=== PATIENT | male | born 1990 | race Two or more races ===

== ENCOUNTER 2018-12-28 12:55 | Day surgery (SDC) | payer OTHER ==
[2018-12-28] MEDS ORDERED: Sodium Chloride 0.9% 10 ML Syringe FLUSH PRN (13:31)
[2018-12-28] MEDS ORDERED: Ondansetron 4 MG/2 ML SDV IVPUSH ONE (13:31)
[2018-12-28] MEDS ORDERED: HYDROmorphone 0.5 MG/0.5 ML Syringe IVPUSH ONE (13:31)
--- NOTE | 2018-12-28 13:40 | EDM.PDOC ---
<Tamia Arnold - Last Filed: 12/28/18 14:15> ED HPI GENERAL MEDICAL PROBLEM - General Chief Complaint: Abdominal Pain Stated Complaint: ABDOMINAL PAIN Time Seen by Provider: 12/28/18 13:13 - Related Data Allergies Allergy/AdvReac Type Severity Reaction Status Date / Time No Known Allergies Allergy Verified 12/28/18 13:11 Home Meds: Home Meds . [No Known Home Meds] 12/28/18 [History] Course - Vital Signs Last Recorded V/S: Last Vital Signs Temp 98.5 F 12/28/18 17:48 Pulse 95 12/28/18 17:48 Resp 18 12/28/18 17:48 BP 124/85 12/28/18 17:48 Pulse Ox 95 12/28/18 17:48 - Orders/Labs/Meds Orders: Active Orders 24 hr Category Date Time Status Influenza Vaccine Charge [RC] .DISCHARGE Care 12/28/18 13:31 Active Peripheral IV Care [RC] . DIRECTED Care 12/28/18 13:32 Active Piperacillin/Tazobactam [Piperacil-Tazobact] 4.5 gm Med 12/28/18 16:45 Active Sodium Chloride 0.9% [Normal Saline] 100 ml IV Q8H Sodium Chloride 0.9% [Normal Saline] 1,000 ml Med 12/28/18 17:45 Active IV ASDIRECTED Sodium Chloride 0.9% [Normal Saline] 1,000 ml Med 12/28/18 13:45 Active IV ONETIME Sodium Chloride 0.9% [Saline Flush] Med 12/28/18 13:31 Active 10 ml FLUSH ASDIRECTED PRN Peripheral IV Insertion Adult [OM.PC] Stat Oth 12/28/18 13:31 Ordered Medication Orders Sodium Chloride (Normal Saline) 1,000 mls @ 999 mls/hr IV ONETIME [facility] Last Admin: 12/28/18 13:58 Dose: 999 mls/hr Piperacillin Sod/Tazobactam (Sod 4.5 gm/ Sodium Chloride) 100 mls @ 25 mls/hr IV Q8H [facility] Last Admin: 12/28/18 17:38 Dose: 25 mls/hr Sodium Chloride (Normal Saline) 1,000 mls @ 100 mls/hr IV ASDIRECTED [facility] Last Admin: 12/28/18 17:40 Dose: 100 mls/hr Sodium Chloride (Saline Flush) 10 ml FLUSH ASDIRECTED PRN PRN Reason: Keep Vein Open Last Admin: 12/28/18 13:50 Dose: 10 ml Labs: Laboratory Tests 12/28/18 12/28/18 12/28/18 Range/Units 13:50 13:50 13:50 WBC 12.33 H (4.23-9.07) K/mm3 RBC 5.47 (4.63-6.08) M/mm3 Hgb 16.9 (13.7-17.5) gm/dl Hct 46.6 (40.1-51.0) % MCV 85.2 (79.0-92.2) fl MCH 30.9 (25.7-32.2) pg MCHC 36.3 H (32.2-35.5) g/dl RDW Std Deviation 38.8 (35.1-43.9) fL Plt Count 121 L (163-337) K/mm3 MPV 12.1 (9.4-12.3) fl Neutrophils % (Manual) 83 H (40-60) % Band Neutrophils % 0 (0-10) % Lymphocytes % (Manual) 9 L (20-40) % Atypical Lymphs % 0 % Monocytes % (Manual) 8 (2-10) % Eosinophils % (Manual) 0 L (0.8-7.0) % Basophils % (Manual) 0 L (0.2-1.2) Platelet Estimate Adequate RBC Morph Comment Normal Sodium 134 L (136-145) mEq/L Potassium 3.3 L (3.5-5.1) mEq/L Chloride 95 L (98-107) mEq/L Carbon Dioxide 27 (21-32) mEq/L Anion Gap 15.3 H (5-15) BUN 18 (7-18) mg/dL Creatinine 1.1 (0.7-1.3) mg/dL Est Cr Clr Drug Dosing TNP Estimated GFR (MDRD) > 60 (>60) mL/min BUN/Creatinine Ratio 16.4 (14-18) Glucose 125 H (74-106) mg/dL Calcium 9.4 (8.5-10.1) mg/dL Total Bilirubin 3.0 H (0.2-1.0) mg/dL AST 61 H (15-37) U/L ALT 138 H (16-63) U/L Alkaline Phosphatase 83 (46-116) U/L C-Reactive Protein 39.3 H* (<1.0) mg/dL Total Protein 8.2 (6.4-8.2) g/dl Albumin 3.4 (3.4-5.0) g/dl Globulin 4.8 gm/dL Albumin/Globulin Ratio 0.7 L (1-2) Lipase 159 (73-393) U/L Meds: Medications Generic Name Dose Route Start Last Admin Trade Name Freq PRN Reason Stop Dose Admin Sodium Chloride 1,000 mls @ 999 mls/hr 12/28/18 13:45 12/28/18 13:58 Normal Saline IV 999 mls/hr ONETIME [facility] Administration Piperacillin Sod/Tazobactam 100 mls @ 25 mls/hr 12/28/18 16:45 12/28/18 17:38 Sod 4.5 gm/ Sodium Chloride IV 25 mls/hr Q8H [facility] Administration Sodium Chloride 1,000 mls @ 100 mls/hr 12/28/18 17:45 12/28/18 17:40 Normal Saline IV 100 mls/hr ASDIRECTED [facility] Administration Sodium Chloride 10 ml 12/28/18 13:31 12/28/18 13:50 Saline Flush FLUSH 10 ml ASDIRECTED PRN Administration Keep Vein Open Discontinued Medications Generic Name Dose Route Start Last Admin Trade Name Nakulq PRN Reason Stop Dose Admin Diatrizoate Meglum/Diatrizoate Sod 90 ml 12/28/18 15:37 12/28/18 15:58 Gastrografin 37% PO 12/28/18 15:38 90 ml ONETIME ONE Administration Hydromorphone HCl 0.5 mg 12/28/18 13:31 12/28/18 13:54 Dilaudid IVPUSH 12/28/18 13:32 0.5 mg ONETIME ONE Administration Sodium Chloride Confirm 12/28/18 17:24 12/28/18 17:39 Normal Saline Administered 12/28/18 17:25 Not Given Dose 1,000 mls @ as directed .ROUTE .STK-MED ONE Influenza Virus Vaccine 60 mcg 12/28/18 13:45 Fluzone Quad 6969-1889 Syringe IM 12/28/18 13:46 .ONCE ONE Iopamidol 100 ml 12/28/18 15:37 12/28/18 15:58 Isovue-300 (61%) IVPUSH 12/28/18 15:38 100 ml ONETIME ONE Administration Ondansetron HCl 4 mg 12/28/18 13:31 12/28/18 13:52 Zofran IVPUSH 12/28/18 13:32 4 mg ONETIME ONE Administration Sodium Chloride 10 ml 12/28/18 15:37 12/28/18 15:58 Saline Flush FLUSH 12/28/18 15:38 10 ml ONETIME ONE Administration Departure - Departure Disposition: Admitted As Inpatient 65 Clinical Impression: Appendicitis - Discharge Information Referrals: PCP,Unknown [Ordering Only Provider] - Forms: ED Department Discharge - My Orders Last 24 Hours: My Active Orders 12/28/18 13:31 Influenza Vaccine Charge [RC] .DISCHARGE Sodium Chloride 0.9% [Saline Flush] 10 ml FLUSH ASDIRECTED PRN Peripheral IV Insertion Adult [OM.PC] Stat 12/28/18 13:32 Peripheral IV Care [RC] . DIRECTED 12/28/18 13:45 Sodium Chloride 0.9% [Normal Saline] 1,000 ml IV ONETIME 12/28/18 16:45 Piperacillin/Tazobactam [Piperacil-Tazobact] 4.5 gm Sodium Chloride 0.9% [ Normal Saline] 100 ml IV Q8H - Assessment/Plan Last 24 Hours: My Active Orders 12/28/18 13:31 Influenza Vaccine Charge [RC] .DISCHARGE Sodium Chloride 0.9% [Saline Flush] 10 ml FLUSH ASDIRECTED PRN Peripheral IV Insertion Adult [OM.PC] Stat 12/28/18 13:32 Peripheral IV Care [RC] . DIRECTED 12/28/18 13:45 Sodium Chloride 0.9% [Normal Saline] 1,000 ml IV ONETIME 12/28/18 16:45 Piperacillin/Tazobactam [Piperacil-Tazobact] 4.5 gm Sodium Chloride 0.9% [ Normal Saline] 100 ml IV Q8H <Fernando Crook - Last Filed: 12/28/18 18:09> ED HPI GENERAL MEDICAL PROBLEM - General Source of Information: Reports: Patient, RN Notes Reviewed - History of Present Illness INITIAL COMMENTS - FREE TEXT/NARRATIVE: 28 year old male with onset of abd pain, nausea and vomiting 2 days ago that continues today. There has been no diarrhea or obvious fever. No hx of prior abd surguries. The pain is worse with motion and walking. He has tried to eat earlier today but was unable to do that due to the severe nausea. Lower Abdomen Pain Score (Numeric/FACES): 10 Past Medical History - Infectious Disease History Infectious Disease History: Reports: Chicken Pox Social & Family History - Tobacco Use Smoking Status *Q: Current Every Day Smoker Years of Tobacco use: 18 Packs/Tins Daily: 0.5 - Caffeine Use Caffeine Use: Reports: Coffee, Soda - Alcohol Use Days Per Week of Alcohol Use: 1 Number of Drinks Per Day: 6 Total Drinks Per Week: 6 - Recreational Drug Use Recreational Drug Use: No ED ROS GENERAL - Review of Systems Review Of Systems: See Below Constitutional: Reports: Chills. Denies: Fever HEENT: Reports: No Symptoms Respiratory: Denies: Shortness of Breath, Cough Cardiovascular: Denies: Chest Pain GI/Abdominal: Reports: Abdominal Pain, Nausea, Vomiting. Denies: Diarrhea Musculoskeletal: Reports: No Symptoms Skin: Reports: No Symptoms Neurological: Reports: No Symptoms ED EXAM, GI/ABD - Physical Exam Exam: See Below General Appearance: Alert, Mild Distress Throat/Mouth: Normal Inspection, Normal Oropharynx Neck: Supple, Full Range of Motion Respiratory/Chest: No Respiratory Distress, Lungs Clear, Normal Breath Sounds Cardiovascular: Tachycardia GI/Abdominal Exam: Soft, Rebound (mild), Tender (diffuse tenderness upper and lower abd with most tenderness RLQ). No: Guarding Neurological: Alert, Oriented Skin Exam: Warm, Dry, Normal Color Course - Orders/Labs/Meds Labs: Laboratory Tests 12/28/18 12/28/18 12/28/18 Range/Units 13:50 13:50 13:50 WBC 12.33 H (4.23-9.07) K/mm3 RBC 5.47 (4.63-6.08) M/mm3 Hgb 16.9 (13.7-17.5) gm/dl Hct 46.6 (40.1-51.0) % MCV 85.2 (79.0-92.2) fl MCH 30.9 (25.7-32.2) pg MCHC 36.3 H (32.2-35.5) g/dl RDW Std Deviation 38.8 (35.1-43.9) fL Plt Count 121 L (163-337) K/mm3 MPV 12.1 (9.4-12.3) fl Neutrophils % (Manual) 83 H (40-60) % Band Neutrophils % 0 (0-10) % Lymphocytes % (Manual) 9 L (20-40) % Atypical Lymphs % 0 % Monocytes % (Manual) 8 (2-10) % Eosinophils % (Manual) 0 L (0.8-7.0) % Basophils % (Manual) 0 L (0.2-1.2) Platelet Estimate Adequate RBC Morph Comment Normal Sodium 134 L (136-145) mEq/L Potassium 3.3 L (3.5-5.1) mEq/L Chloride 95 L (98-107) mEq/L Carbon Dioxide 27 (21-32) mEq/L Anion Gap 15.3 H (5-15) BUN 18 (7-18) mg/dL Creatinine 1.1 (0.7-1.3) mg/dL Est Cr Clr Drug Dosing TNP Estimated GFR (MDRD) > 60 (>60) mL/min BUN/Creatinine Ratio 16.4 (14-18) Glucose 125 H (74-106) mg/dL Calcium 9.4 (8.5-10.1) mg/dL Total Bilirubin 3.0 H (0.2-1.0) mg/dL AST 61 H (15-37) U/L ALT 138 H (16-63) U/L Alkaline Phosphatase 83 (46-116) U/L C-Reactive Protein 39.3 H* (<1.0) mg/dL Total Protein 8.2 (6.4-8.2) g/dl Albumin 3.4 (3.4-5.0) g/dl Globulin 4.8 gm/dL Albumin/Globulin Ratio 0.7 L (1-2) Lipase 159 (73-393) U/L - Re-Assessments/Exams Free Text/Narrative Re-Assessment/Exam: 12/28/18 16:34 White blood count did come back elevated, C-reactive protein did consequently also come back extremely elevated. CT had been ordered. I now do have results on that which shows dilated appendix with surrounding inflammatory change. This is felt to be compatible with appendicitis. Dilated small bowel most likely resulting from or representing ileus from the appendicitis. 17:00. Dr Ceballos has reviewed abd CT, discussed findings with patient, will be taking patient to surgery shortly. Departure - Departure Time of Disposition: 16:36 Condition: Serious ED Communication - Discussed Case With (1) Discussed Case With (1): Admitting Provider (Tucker at about 16:41)
[2018-12-28] MEDS ORDERED: Sodium Chloride 0.9% 1,000 ML IV SCH (13:45)
[2018-12-28] MEDS ORDERED: FLU Vacc QS2019-20(6MOS+)/PF 60 MCG/0.5 ML SYRINGE IM ONE (13:45)
--- NOTE | 2018-12-28 15:05 | CR ---
Abdomen: Supine and upright views of the abdomen were obtained. Comparison: No prior abdominal x-ray. Multiple air-fluid levels are seen within the small bowel with mild gaseous dilatation. Findings are suspicious either for gastroenteritis or developing distal small bowel obstruction. No free air is seen. Bony structures are unremarkable. No abnormal calcifications or soft tissue abnormality is seen. Impression: 1. Abnormal small bowel gas pattern as noted above. Diagnostic code #3
[2018-12-28] MEDS ORDERED: Iopamidol 612 MG/ML 100 ML Bottle IVPUSH ONE (15:37)
[2018-12-28] MEDS ORDERED: Diatrizoate Meglumine/Diatrizoate Sodium 37% 120 ML Bottle PO ONE (15:37)
[2018-12-28] MEDS ORDERED: Sodium Chloride 0.9% 10 ML Syringe FLUSH ONE (15:37)
--- NOTE | 2018-12-28 16:21 | CT ---
CT abdomen and pelvis Technique: Multiple axial sections were obtained from above the dome of the diaphragm inferiorly through the pubic symphysis. Intravenous and oral contrast was utilized. Oral contrast remains within proximal bowel. Findings: Diffusely dilated small bowel is noted containing air and fluid. Dilated appendix is seen with surrounding inflammatory change compatible with appendicitis. Small bowel findings most likely represent an ileus. Respiratory motion artifact is seen on some of the upper cuts. Lung bases shows no discrete abnormality. Liver and spleen appears within normal limits. Adrenal glands show no nodule. Pancreas is within normal limits. Gallbladder contains no calcified gallstones. Kidneys show symmetric contrast enhancement without hydronephrosis or mass. Aorta shows no aneurysm. No retroperitoneal adenopathy or mesenteric abnormalities are seen. No pelvic mass or adenopathy is seen. Delayed images shows contrast excretion into both ureters as well as contrast being seen within the bladder. Impression: 1. Dilated appendix with surrounding inflammatory change. Findings are felt compatible with appendicitis. 2. Dilated small bowel most likely representing ileus from the appendicitis. 3. No additional abnormality is appreciated. Diagnostic code #5
[2018-12-28] MEDS ORDERED: Sodium Chloride 0.9% 1,000 ML ONE (17:24)
[2018-12-28] MEDS: Piperacillin/Tazobactam 4.5 GM in Sodium Chloride 0.9% 100 ML IV SCH (17:38)
--- NOTE | 2018-12-28 17:38 | PCM.CONS ---
H&P History of Present Illness - General Date of Service: 12/28/18 Source of Information: Patient History Limitations: Reports: Language Barrier (used table files supervisor) - History of Present Illness Initial Comments - Free Text/Narative: Patient started having RLQ abdominal pain 2 days ago. Pain was 10/10 yesterday and the patient has nausea and vomiting. He presented to the ED today and CT scan revealed acute appendicitis. WBC was 12. Patient is afebrile. He is based in [place] and is here temporarily. Onset of Symptoms: Reports: Gradual Duration of Symptoms: Reports: Getting Worse Location: Reports: Abdomen (RLQ) Quality: Reports: Ache Severity: Severe Improves with: Reports: Medication Worsens with: Reports: Immobilization Associated Symptoms: Reports: Nausea/Vomiting Lower Abdomen Pain Score (Numeric/FACES): 10 - Related Data Allergies/Adverse Reactions: Allergies Allergy/AdvReac Type Severity Reaction Status Date / Time No Known Allergies Allergy Verified 12/28/18 13:11 Home Medications: Home Meds . [No Known Home Meds] 12/28/18 [History] Past Medical History - Infectious Disease History Infectious Disease History: Reports: Chicken Pox Social & Family History - Tobacco Use Smoking Status *Q: Current Every Day Smoker Years of Tobacco use: 18 Packs/Tins Daily: 0.5 - Caffeine Use Caffeine Use: Reports: Coffee, Soda - Alcohol Use Days Per Week of Alcohol Use: 1 Number of Drinks Per Day: 6 Total Drinks Per Week: 6 - Recreational Drug Use Recreational Drug Use: No H&P Review of Systems - Review of Systems: Review Of Systems: See Below General: Reports: No Symptoms HEENT: Reports: No Symptoms Pulmonary: Reports: No Symptoms Cardiovascular: Reports: No Symptoms Gastrointestinal: Reports: Abdominal Pain, Anorexia, Nausea, Vomiting Genitourinary: Reports: No Symptoms Musculoskeletal: Reports: No Symptoms Skin: Reports: No Symptoms Exam - Exam Exam: See Below - Vital Signs Vital Signs: Last Vital Signs Temp 98.0 F 12/28/18 13:05 Pulse 100 12/28/18 13:05 Resp 16 12/28/18 13:05 BP 126/91 H 12/28/18 13:05 Pulse Ox 97 12/28/18 13:05 - Exam General: Alert, Oriented, Cooperative, Mild Distress Lungs: Clear to Auscultation, Normal Respiratory Effort Cardiovascular: Regular Rate, Regular Rhythm, Normal S1, Normal S2 GI/Abdominal Exam: Soft, Tender (RLQ >periumbilical > LLQ) (Male) Exam: No Hernia - Patient Data Lab Results Last 24 hrs: Laboratory Results - last 24 hr 12/28/18 12/28/18 12/28/18 Range/Units 13:50 13:50 13:50 WBC 12.33 H (4.23-9.07) K/mm3 RBC 5.47 (4.63-6.08) M/mm3 Hgb 16.9 (13.7-17.5) gm/dl Hct 46.6 (40.1-51.0) % MCV 85.2 (79.0-92.2) fl MCH 30.9 (25.7-32.2) pg MCHC 36.3 H (32.2-35.5) g/dl RDW Std Deviation 38.8 (35.1-43.9) fL Plt Count 121 L (163-337) K/mm3 MPV 12.1 (9.4-12.3) fl Neutrophils % (Manual) 83 H (40-60) % Band Neutrophils % 0 (0-10) % Lymphocytes % (Manual) 9 L (20-40) % Atypical Lymphs % 0 % Monocytes % (Manual) 8 (2-10) % Eosinophils % (Manual) 0 L (0.8-7.0) % Basophils % (Manual) 0 L (0.2-1.2) Platelet Estimate Adequate RBC Morph Comment Normal Sodium 134 L (136-145) mEq/L Potassium 3.3 L (3.5-5.1) mEq/L Chloride 95 L (98-107) mEq/L Carbon Dioxide 27 (21-32) mEq/L Anion Gap 15.3 H (5-15) BUN 18 (7-18) mg/dL Creatinine 1.1 (0.7-1.3) mg/dL Est Cr Clr Drug Dosing TNP Estimated GFR (MDRD) > 60 (>60) mL/min BUN/Creatinine Ratio 16.4 (14-18) Glucose 125 H (74-106) mg/dL Calcium 9.4 (8.5-10.1) mg/dL Total Bilirubin 3.0 H (0.2-1.0) mg/dL AST 61 H (15-37) U/L ALT 138 H (16-63) U/L Alkaline Phosphatase 83 (46-116) U/L C-Reactive Protein 39.3 H* (<1.0) mg/dL Total Protein 8.2 (6.4-8.2) g/dl Albumin 3.4 (3.4-5.0) g/dl Globulin 4.8 gm/dL Albumin/Globulin Ratio 0.7 L (1-2) Lipase 159 (73-393) U/L Result Diagrams: 12/28/18 13:50 12/28/18 13:50 Consult PN Assessment/Plan Problem List Initiated/Reviewed/Updated: No Plan: Acute appendicitis. I recommended surgery. We discussed risks, benefits and alternatives. Risks discussed include but not limited to injury to nearby structure, infection, wound complications, reaction to medications, blood clots , need for further interventions. All this discussion was done through an files supervisor. Patient understood and informed consent was obtained.
[2018-12-28] MEDS: Sodium Chloride 0.9% 1,000 ML IV SCH (17:40)
[2018-12-28] MEDS ORDERED: Lidocaine 1% 30 ML SDV ONE (19:14)
--- NOTE | 2018-12-28 19:26 | PCM.PREANE ---
Preanesthetic Assessment - Anesthesia/Transfusion/Family Hx Anesthesia History: No Prior Anesthesia Family History of Anesthesia Reaction: No Transfusion History: No Prior Transfusion(s) - Review of Systems General: No Symptoms, Weakness Pulmonary: No Symptoms Cardiovascular: No Symptoms Gastrointestinal: Nausea, Vomiting Neurological: No Symptoms Other: Reports: None - Physical Assessment NPO Status Date: 12/28/18 NPO Status Time: 10:00 Vital Signs: Last Vital Signs Temp 98.5 F 12/28/18 17:48 Pulse 95 12/28/18 17:48 Resp 18 12/28/18 17:48 BP 124/85 12/28/18 17:48 Pulse Ox 95 12/28/18 17:48 Height: 1.75 m Weight: 80.104 kg ASA Class: 1E Mental Status: Alert & Oriented x3 Dentition: Reports: Broken Tooth/Teeth, Missing Tooth/Teeth Thyro-Mental Finger Breadths: 3 Mouth Opening Finger Breadths: 3 ROM/Head Extension: Full Lungs: Clear to Auscultation - Lab Values: Laboratory Last Values WBC 12.33 K/mm3 (4.23-9.07) H 12/28/18 13:50 RBC 5.47 M/mm3 (4.63-6.08) 12/28/18 13:50 Hgb 16.9 gm/dl (13.7-17.5) 12/28/18 13:50 Hct 46.6 % (40.1-51.0) 12/28/18 13:50 MCV 85.2 fl (79.0-92.2) 12/28/18 13:50 MCH 30.9 pg (25.7-32.2) 12/28/18 13:50 MCHC 36.3 g/dl (32.2-35.5) H 12/28/18 13:50 RDW Std Deviation 38.8 fL (35.1-43.9) 12/28/18 13:50 Plt Count 121 K/mm3 (163-337) L 12/28/18 13:50 MPV 12.1 fl (9.4-12.3) 12/28/18 13:50 Neutrophils % (Manual) 83 % (40-60) H 12/28/18 13:50 Band Neutrophils % 0 % (0-10) 12/28/18 13:50 Lymphocytes % (Manual) 9 % (20-40) L 12/28/18 13:50 Atypical Lymphs % 0 % 12/28/18 13:50 Monocytes % (Manual) 8 % (2-10) 12/28/18 13:50 Eosinophils % (Manual) 0 % (0.8-7.0) L 12/28/18 13:50 Basophils % (Manual) 0 (0.2-1.2) L 12/28/18 13:50 Platelet Estimate Adequate 12/28/18 13:50 RBC Morph Comment Normal 12/28/18 13:50 Sodium 134 mEq/L (136-145) L 12/28/18 13:50 Potassium 3.3 mEq/L (3.5-5.1) L 12/28/18 13:50 Chloride 95 mEq/L (98-107) L 12/28/18 13:50 Carbon Dioxide 27 mEq/L (21-32) 12/28/18 13:50 Anion Gap 15.3 (5-15) H 12/28/18 13:50 BUN 18 mg/dL (7-18) 12/28/18 13:50 Creatinine 1.1 mg/dL (0.7-1.3) 12/28/18 13:50 Est Cr Clr Drug Dosing TNP 12/28/18 13:50 Estimated GFR (MDRD) > 60 mL/min (>60) 12/28/18 13:50 BUN/Creatinine Ratio 16.4 (14-18) 12/28/18 13:50 Glucose 125 mg/dL (74-106) H 12/28/18 13:50 Calcium 9.4 mg/dL (8.5-10.1) 12/28/18 13:50 Total Bilirubin 3.0 mg/dL (0.2-1.0) H 12/28/18 13:50 AST 61 U/L (15-37) H 12/28/18 13:50 ALT 138 U/L (16-63) H 12/28/18 13:50 Alkaline Phosphatase 83 U/L (46-116) 12/28/18 13:50 C-Reactive Protein 39.3 mg/dL (<1.0) H* 12/28/18 13:50 Total Protein 8.2 g/dl (6.4-8.2) 12/28/18 13:50 Albumin 3.4 g/dl (3.4-5.0) 12/28/18 13:50 Globulin 4.8 gm/dL 12/28/18 13:50 Albumin/Globulin Ratio 0.7 (1-2) L 12/28/18 13:50 Lipase 159 U/L (73-393) 12/28/18 13:50 - Allergies Allergies/Adverse Reactions: Allergies Allergy/AdvReac Type Severity Reaction Status Date / Time No Known Allergies Allergy Verified 12/28/18 13:11 - Blood Blood Available: No - Anesthesia Plan Pre-Op Medication Ordered: None - Acknowledgements Anesthesia Type Planned: General Anesthesia Pt an Appropriate Candidate for the Planned Anesthesia: Yes Alternatives and Risks of Anesthesia Discussed w Pt/Guardian: Yes Pt/Guardian Understands and Agrees with Anesthesia Plan: Yes PreAnesthesia Questionnaire - Infectious Disease History Infectious Disease History: Reports: Chicken Pox - SUBSTANCE USE Smoking Status *Q: Current Every Day Smoker Tobacco Use Within Last Twelve Months: Cigarettes Days Per Week of Alcohol Use: 1 Number of Drinks Per Day: 6 Total Drinks Per Week: 6 Recreational Drug Use History: No - HOME MEDS Home Medications: Home Meds . [No Known Home Meds] 12/28/18 [History] - CURRENT (IN HOUSE) MEDS Current Meds: Current Medications Sodium Chloride (Normal Saline) 1,000 mls @ 999 mls/hr IV ONETIME [facility] Last Admin: 12/28/18 13:58 Dose: 999 mls/hr Piperacillin Sod/Tazobactam (Sod 4.5 gm/ Sodium Chloride) 100 mls @ 25 mls/hr IV Q8H [facility] Last Admin: 12/28/18 17:38 Dose: 25 mls/hr Sodium Chloride (Normal Saline) 1,000 mls @ 100 mls/hr IV ASDIRECTED [facility] Last Admin: 12/28/18 17:40 Dose: 100 mls/hr Sodium Chloride (Saline Flush) 10 ml FLUSH ASDIRECTED PRN PRN Reason: Keep Vein Open Last Admin: 12/28/18 13:50 Dose: 10 ml Discontinued Medications Diatrizoate Meglum/Diatrizoate Sod (Gastrografin 37%) 90 ml PO ONETIME ONE Stop: 12/28/18 15:38 Last Admin: 12/28/18 15:58 Dose: 90 ml Hydromorphone HCl (Dilaudid) 0.5 mg IVPUSH ONETIME ONE Stop: 12/28/18 13:32 Last Admin: 12/28/18 13:54 Dose: 0.5 mg Sodium Chloride (Normal Saline) Confirm Administered Dose 1,000 mls @ as directed .ROUTE .STK-MED ONE Stop: 12/28/18 17:25 Last Admin: 12/28/18 17:39 Dose: Not Given Influenza Virus Vaccine (Fluzone Quad Syringe) 60 mcg IM .ONCE ONE Stop: 12/28/18 13:46 Iopamidol (Isovue-300 (61%)) 100 ml IVPUSH ONETIME ONE Stop: 12/28/18 15:38 Last Admin: 12/28/18 15:58 Dose: 100 ml Lidocaine HCl (Xylocaine-Mpf 1%) Confirm Administered Dose 30 ml .ROUTE .STK- MED ONE Stop: 12/28/18 19:15 Ondansetron HCl (Zofran) 4 mg IVPUSH ONETIME ONE Stop: 12/28/18 13:32 Last Admin: 12/28/18 13:52 Dose: 4 mg Sodium Chloride (Saline Flush) 10 ml FLUSH ONETIME ONE Stop: 12/28/18 15:38 Last Admin: 12/28/18 15:58 Dose: 10 ml
[2018-12-28] MEDS ORDERED: Propofol 200 MG/20 ML SDV ONE (19:44)
[2018-12-28] MEDS ORDERED: Midazolam 1 MG/ML 2 ML SDV ONE (19:44)
[2018-12-28] MEDS ORDERED: Rocuronium 50 MG/5 ML Vial ONE (19:44)
[2018-12-28] MEDS ORDERED: fentaNYL 250 MCG/5 ML SDV ONE (19:45)
[2018-12-28] MEDS ORDERED: Lidocaine 1% 8 ML ONE (19:54)
[2018-12-28] MEDS ORDERED: Succinylcholine/Normal Saline 100 MG/5 ML Syringe ONE (19:54)
[2018-12-28] MEDS ORDERED: Lactated Ringers 1,000 ML ONE ×3 (19:55→20:57)
[2018-12-28] MEDS ORDERED: Ondansetron 4 MG/2 ML SDV ONE (20:10)
[2018-12-28] MEDS ORDERED: Phenylephrine/Normal Saline 100 MCG/ML 10 ML Syringe ONE (20:25)
[2018-12-28] MEDS ORDERED: HYDROmorphone 0.5 MG/0.5 ML Syringe IVPUSH PRN (20:46)
[2018-12-28] MEDS ORDERED: fentaNYL 100 MCG/2 ML SDV IVPUSH PRN (20:46)
[2018-12-28] MEDS ORDERED: Midazolam 1 MG/ML 2 ML SDV IVPUSH PRN (20:46)
[2018-12-28] MEDS ORDERED: Prochlorperazine 10 MG/2 ML SDV IVPUSH PRN (20:46)
[2018-12-28] MEDS ORDERED: Ketorolac 30 MG/ML SDV IVPUSH SCH (21:00)
[2018-12-28] MEDS ORDERED: HYDROmorphone 0.5 MG/0.5 ML Syringe ONE (21:06)
--- NOTE | 2018-12-28 22:27 | PCM.POSTAN ---
POST ANESTHESIA ASSESSMENT - MENTAL STATUS Mental Status: Somnolent - VITAL SIGNS Vital Signs: Last Vital Signs Temp 98.5 F 12/28/18 17:48 Pulse 95 12/28/18 17:48 Resp 18 12/28/18 17:48 BP 124/85 12/28/18 17:48 Pulse Ox 95 12/28/18 17:48 Postop VS in PACU 115/65, HR 98, RR 16, T 100.3 F, 100% on FM - RESPIRATORY Respiratory Status: Respiratory Rate WNL, Airway Patent, O2 Saturation Stable, Supplemental Oxygen - CARDIOVASCULAR CV Status: Elevated Pulse Rate - GASTROINTESTINAL GI Status: No Symptoms - PAIN Pain Score: 0 - POST OP HYDRATION Hydration Status: Adequate & Stable - OBSERVATIONS Free Text/Narrative:: Pt Febrile
--- NOTE | 2018-12-28 23:33 | OR ---
DATE OF OPERATION: 12/28/2018 SURGEON: Cayetano Ceballos MD PREOPERATIVE DIAGNOSIS: Acute appendicitis. POSTOPERATIVE DIAGNOSIS: Acute appendicitis. OPERATION PERFORMED: Laparoscopic appendectomy. ANESTHESIA: General endotracheal. ESTIMATED BLOOD LOSS: 15 mL. INTRAVENOUS FLUIDS: 2 L. URINE OUTPUT: 100. NG OUTPUT: 550. FINDINGS: Necrotic mid to distal appendix. INDICATIONS AND CONSENT: The patient is a 28-year-old male who was having abdominal pain 2 days ago. Pain worsened and the patient presented to the emergency department for evaluation. In the ED, white count was 12. CT scan showed acute appendicitis without any evidence of abscess or perforation. I saw the patient earlier today and confirmed physical findings, labs and CT scans, and I offered him a laparoscopic appendectomy. We discussed risks, benefits, and alternatives. Risks discussed include, but not limited to, injury to adjacent structures, abscess, wound complications, infection, pneumonia, blood clots, and need for further operations. The patient who is [place]ian-speaking only understood our discussion as everything was done through an lang interpreter, and all questions were answered. Informed consent was obtained. DESCRIPTION OF PROCEDURE: The patient was taken to the operating room, placed on operating table in supine position. Following induction of general endotracheal anesthesia, preop antibiotics were not indicated as the patient was already on Zosyn. SCDs were placed. The patient was padded and a Ortiz catheter was placed. Then, the abdomen was clipped of any hair and prepped and draped in the usual sterile fashion. A formal time-out was performed prior to the start of the procedure. We began the procedure by making access in the abdomen through infraumbilical incision and cutdown method. Joey trocar was introduced. Then, a 10/30 laparoscope was introduced. The abdomen was inspected. There was inflammatory fluid in the pelvis as well as right lower quadrant. Then, 2 additional 5 mm trocars were placed, 1 in the suprapubic position, 1 in the left lower quadrant, then graspers were inserted. The patient was positioned in reverse Trendelenburg and left side down to expose the area of interest. Then, immediately we visualized the necrotic appendix that was adhered to the anterior abdominal wall. This was carefully dislodged, and the rest of the bowel was also moved away from the right lower quadrant to expose the appendix. There was significant inflammatory stranding around the appendix that was dissected out revealing the appendiceal base which was not inflamed. Then, a window was made underneath the appendiceal base, and a 45-mm blue load was used to transect the appendix using Endo-CADY stapler. The mesoappendix was transected with a white load 45 mm and with Endo-CADY stapler. The appendix was placed into the EndoCatch bag and removed through the umbilical incision. Then we inspected the staple lines, they seemed to be hemostatic. There was no injury to the bowel. The area was irrigated with normal saline and suctioned and the rest of the inflammatory fluid from the pelvis were also suctioned. Then, the trocars were removed. The abdomen was desufflated. The fascia at the umbilical site was closed with 0 Vicryl stitches in a [id number] fashion and then skin at all sites was closed with 4-0 Monocryl and this marked the end of the procedure. At the end of the procedure, all instruments, sharps, and sponges were counted and found to be correct x2. The patient was awoken from general anesthesia and taken to the PACU in stable condition. PLAN: Plan is for the patient to stay overnight for observation and the patient will be discharged tomorrow if doing well and tolerating diet. 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 FRANCIS /[id number] EDEL
--- NOTE | 2018-12-29 00:56 | PCM48HPAN ---
Post Anesthesia Note - EVALUATION WITHIN 48HRS OF ANESTHETIC Vital Signs in Normal Range: Yes Patient Participated in Evaluation: Yes Respiratory Function Stable: Yes Airway Patent: Yes Cardiovascular Function Stable: Yes Hydration Status Stable: Yes Pain Control Satisfactory: Yes Nausea and Vomiting Control Satisfactory: Yes Mental Status Recovered: Yes Vital Signs: Last Vital Signs Temp 99.2 F 12/28/18 23:15 Pulse 98 12/28/18 23:15 Resp 12 12/28/18 23:15 BP 105/76 12/28/18 23:15 Pulse Ox 96 12/28/18 23:15
[2018-12-29] MEDS: Piperacillin/Tazobactam 4.5 GM in Sodium Chloride 0.9% 100 ML IV SCH ×2 (02:28→08:24)
[2018-12-29] MEDS: Sodium Chloride 0.9% 1,000 ML IV SCH (02:42)
[2018-12-29] MEDS ORDERED: Sodium Chloride 0.9% 1,000 ML IV SCH (08:15)
[2018-12-29] MEDS ORDERED: Acetaminophen/oxyCODONE 325-5 MG Tab PO PRN (10:17)
[2018-12-29] MEDS ORDERED: Ondansetron 4 MG/2 ML SDV IVPUSH PRN (10:21)
[2018-12-29] MEDS ORDERED: FLU Vacc QS2019-20(6MOS+)/PF 60 MCG/0.5 ML SYRINGE IM ONE (12:45)
== END 2018-12-29 14:24 | disposition home or self-care (01) ==
LOC: JD.ED 12:55 → JD.SDS 19:09 → JD.MS 23:28 → JD.SDS 12-29 14:24
PROVIDERS: ATTEND Surgery
DX: K35.30 Acute appendicitis with localized peritonitis, without perforation or gangrene (principal); F17.210 Nicotine dependence, cigarettes, uncomplicated
CPT/HCPCS: 36415; 44970; 74019; 74177; 80053; 83690; 85007; 85027; 86140; 90471; 90686; 96361; 96365; 96375; 99285; J0330; J1170; J1885; J2001; J2250; J2370; J2405; J2543; J2704; J3010; J7030; J7040; J7120; Q9963; Q9967; 00840; 99284; G0008